=== PATIENT | female | born 1945 | race Two or more races ===

== ENCOUNTER → 2018-05-05 | Outpatient (CLI) | payer MEDICARE ==
[2018-05-05 17:36] LABS: HCT 40.9 % (34.0-46.0); HGB 13.2 gm/dL (11.4-16.0); MCH 27.3 pg (25.0-35.0); MCHC 32.4 g/dL (31.0-37.0); MCV 84.1 fL (80.0-100.0); Mean Platelet Volume 7.9; Platelet Count 325 k/uL (150-450); RBC 4.86 m/uL (3.80-5.40); RDW 13.5 % (11.5-15.5); WBC 5.9 k/uL (3.8-10.6)
[2018-05-05 17:48] LABS: Appearance,Urine Clear (Clear); Bilirubin,Urine Negative (Negative); Blood,Urine Negative (Negative); Color,Urine Light Yellow; Glucose,Urine (UA) Negative (Negative); Ketones,Urine Negative (Negative); Leukocyte Esterase,Urine Negative (Negative); Nitrite,Urine Negative (Negative); PH, Urine 5.5 (5.0-8.0); Protein,Urine Negative (Negative); Specific Gravity,Urine 1.006 (1.001-1.035); Urobilinogen,Urine <2.0 mg/dL (<2.0)
[2018-05-05 17:49] LABS: ALT 32 U/L (9-52); AST 28 U/L (14-36); Albumin 4.3 g/dL (3.5-5.0); Alkaline Phosphatase 79 U/L (38-126); Anion Gap 8 mmol/L; Blood Urea Nitrogen 11 mg/dL (7-17); Calcium 9.5 mg/dL (8.4-10.2); Carbon Dioxide 26 mmol/L (22-30); Chloride 107 mmol/L (98-107); Glucose 121 mg/dL (74-99); Partial Thromboplastin Time 24.5 sec (22.0-30.0); Potassium 4.4 mmol/L (3.5-5.1); Prothrombin Time 10.7 sec (9.0-12.0); Sodium 141 mmol/L (137-145); Total Bilirubin 0.4 mg/dL (0.2-1.3); Total Protein 7.3 g/dL (6.3-8.2)
== END | disposition home or self-care (01) ==
LOC: LABPAT 16:45
PROVIDERS: ATTEND Orthopaedic Surgery
DX: Z01.812 Encounter for preprocedural laboratory examination (principal)
CPT/HCPCS: 36415; 80053; 81003; 85027; 85610; 85730; 87070

== ENCOUNTER 2018-05-15 06:28 | Inpatient (IN) | payer MEDICARE ==
[~2018-05-15 06:28] MED LIST: HYDROmorphone 0.5 MG/0.5 ML SYRINGE IVP PRN; MELOXICAM 7.5 MG TAB PO ONE; MIDAZOLAM (PF) 2 MG/2 ML VIAL IV PRN; ONDANSETRON 4 MG/2 ML VIAL IVP ONE; TRANEXAMIC ACID 1,000 MG in SODIUM CHLORIDE 0.9% 100 ML IVPB ONE
[2018-05-15] MEDS: LACTATED RINGERS 1,000 ML IV SCH ×4 (06:52→21:16)
[2018-05-15 07:00] LABS: Glucose,Whole Blood 104 mg/dL (75-99)
[2018-05-15] MEDS: ACETAMINOPHEN TAB 500 MG TAB PO ONE ×2 (07:00→11:38)
[2018-05-15] MEDS ORDERED: fentaNYL (PF) 50 MCG/ML 2 ML AMP IVP ONE ×2 (07:07→07:08)
[2018-05-15] MEDS ORDERED: ROPIVACAINE 1,100 MG, SODIUM CHLORIDE 0.9% 500 ML 330 ML MISCELLANE PRN ×2 (07:36)
[2018-05-15] MEDS ORDERED: PROPOFOL 10 MG/ML 20 ML VIAL IV ONE (07:39)
[2018-05-15] MEDS: ceFAZolin IN SWFI 2 GM/20 ML SYRINGE IVP ONE ×2 (07:39→08:13)
[2018-05-15] MEDS ORDERED: SODIUM CHLORIDE 0.9% 100 ML BAG ONE (07:39)
[2018-05-15] MEDS ORDERED: MIDAZOLAM 2 MG/2 ML VIAL ONE (07:39)
[2018-05-15] MEDS ORDERED: ceFAZolin 3,000 MG in SODIUM CHLORIDE 0.9% IRRIGATIO 3,000 ML IRRIGATION ONE (07:39)
[2018-05-15] MEDS ORDERED: ePHEDrine SULFATE/0.9% NACL/PF 50 MG/5 ML SYRINGE IV ONE (07:39)
[2018-05-15] MEDS ORDERED: TRANEXAMIC ACID 1,000 MG/10 ML VIAL ONE (07:39)
[2018-05-15] MEDS ORDERED: ROPIVACAINE 246.25 MG, EPINEPHrine 0.5 MG, KETOROLAC 30 MG, cloNIDine HCL/PF 80 MCG, WA... MISCELLANE ONE ×5 (07:55)
[2018-05-15] MEDS ORDERED: LACTATED RINGERS 1,000 ML IV ONE (08:59)
--- NOTE | 2018-05-15 09:15 | P.ONQ ---
Anesthesiology Proc Note - PNB - Peripheral Nerve Block Performed Left Adductor Canal Infusion Time Out Performed: Yes (704) Procedure Start Time: 07:05 Procedure Stop Time: 07:15 Indication: Acute Post-Operative Pain, Dx/Pain Location (Left Knee Pain), Requested by physician Sedation Type: Sedate with meaningful contact maintained Preparation: Sterile Prep Catheter: Indwelling Needle Types: Touhy Needle Size: 100mm (4") Technique: Ultrasound Injectate: 0.5% Ropivacaine (see comment for volume) Blood Aspirated: No Pain Paresthesia on Injection Noted: No Resistance on Injection: Normal Events: Uneventful and Well Tolerated
--- NOTE | 2018-05-15 09:25 | P.OP ---
Date of Procedure: 05/15/18 Procedure(s) Performed: PREOPERATIVE DIAGNOSIS: Left knee severe osteoarthritis with genu varum POSTOPERATIVE DIAGNOSIS: Left knee severe osteoarthritis with genu varum OPERATION: Left knee cemented total replacement arthroplasty. ANESTHESIA: Spinal ESTIMATED BLOOD LOSS: 100 ml. DESKTOP SUPPORT ENGINEER: Jolly Leal PA-C (assistance with: patient positioning, retraction, exposure, hemostasis, leg positioning, implantation, irrigation, closure, dressing) COMPLICATIONS: None apparent. COMPONENTS IMPLANTED: Persona system from [employer] INDICATIONS: Mrs. Andrew is a 73 year old female with a history of left knee osteoarthritis. Conservative treatment has been tried and has been unsuccessful in controlling symptoms adequately. MRI shows severe osteoarthritic changes in the medial and patellofemoral compartments and she has corresponding symptoms. The operation of knee replacement has been discussed at length in the office, as well as potential risks and complications. These are inclusive of, but not limited to: bleeding, infection, scarring, discomfort, blood vessel and nerve damage, need for further surgery, failure to relieve symptoms, persistence, recurrence, or worsening of problems, loosening, dislocation, wear, blood clot, pulmonary embolism, , gait dysfunction, stiffness, and other risks as discussed in the office. The patient elects to proceed and the consent form has been signed. PROCEDURE: The patient was taken to the operating room and positioned on the operating room table in the supine position. Anesthesia was initiated. Care was taken to make sure that all pressure points were adequately padded. The operative lower extremity was prepped and draped in the usual aseptic fashion using ChloraPrep. Ioban drape was used for the case and the patient received intravenous antibiotics within one hour of the incision. A pneumotourniquet and leg pal were used for the case. The limb was exsanguinated with an Esmarch bandage and the tourniquet was inflated to 350 mmHg. Time-out was called confirming the patient's identity, side, procedure and administration of antibiotics and tranexamic acid, 1 g IV. The incision was then created midline directly over the knee, carried down through skin and into the subcutaneous tissues and down to fascia. Full thic kness subcutaneous medial flap was developed. Medial parapatellar arthrotomy was performed and the interior of the knee was inspected. There was end-stage osteoarthritis of the knee with a mild to moderate genu varum type deformity. The fat pad was excised and proximal medial release on the tibia was completed using meticulous dissection and a curved osteotome. The anterior cruciate ligament was taken down. Note was made of significant attrition of the anterior and significant degenerative appearance of the posterior cruciate ligaments. The exposure was excellent. The knee was flexed 90 degrees and the patella was everted. A spot was chosen on the femur approximately 1 cm anterior to the posterior cruciate ligament insertion and an intramedullary hole was created within the femur. The intramedullary guide was then set to 5 degrees of valgus. The distal cutting block was attached and pinned into position. An appropriate amount of distal femoral resection was set. The oscillating saw was then used to make the distal femoral cut. This cut was confirmed to be flat with the flat end of an osteotome. The retractors were placed around the tibia and the tibial surface was addressed. The angle and depth of resection was adjusted using an extramedullary cutting guide. The guide had a built-in 3 degree posterior slope cut. Once the cutting guide was adjusted appropriately and in line with the axis of the tibia and confirmed to be in good position in relation to the second metatarsal and transmalleolar axis, the tibial cut was then created with protection of the posterior neurovascular structures and the collateral ligaments. The tibial cut surface was removed and sized. Femoral sizing was then accomplished using anterior referencing. Care was taken to analyze the posterior condyles for signs of deficiency or severe wear, and adjustments to the guide were made, as appropriate. 3 degree external rotation pins were placed. The cutting jig for the femur was applied to these pins. The planned cuts were further analyzed prior to performing them with the oscillating saw. No femoral notching was produced. Bone fragments were removed and the cut surfaces were finished, as necessary, with a reciprocating saw. Spacer block technique was then used to confirm that the flexion and extension gaps were equal. Soft tissue releases and adjustment of the tibial and/or fem oral cuts were made, as necessary, until the gaps were equal. This included release of the posterior cruciate ligament, which was tight in this patient. The femur was then further finished for a posterior cruciate ligament substituting component. Patellar resurfacing was performed using a reamer. The size of the required patellar component was estimated and the patellar surface was then reamed down to a residual thickness which would recreate the [place] thickness with the component. The exact placement of the patellar component was adjusted for position based on preoperative x-rays and intraoperative findings. Prior to placing trial components, anesthetic solution consisting of ropivicaine with epinephrine, ketorolac, and clonidine was injected carefully and methodically in a grid pattern using aspiration technique into the soft tissue around the knee circumferentially, starting with the deeper tissues first and progressing to fascia, and then finally the skin/subcutaneous tissue. Particular care was taken when injecting the posterior capsule. The trial components were inserted. The tibial tray was allowed to self center and the patella was noted to track very well. The position of the tibial component was marked and the tibia was then finished for a stemmed tibial component. Cement was mixed on the back table and applied to the final components. Trial components were removed and the cut surfaces of the bone were pulse lavaged thoroughly and dried. Cement was then applied to the tibial surface and pressurized into the surface using finger pressurization technique. The tibial component was then applied and excess cement was removed after it was impacted securely and noted to be flush with the cut surface. In similar fashion, the cement was applied to the cut femoral surface, pressurized in using finger pressurization and the component was impacted into place. Excess cement was removed. The polyethylene spacer was then implanted and locked into position. The patellar component was then applied in similar technique and a patellar clamp was used to hold the patella in place as the cement hardened. Once the cement had fully hardened, the knee was reinspected. Any other cement extrusion was removed and final kinematic testing showed range of motion from 0 to 130 degrees with excellent stability, both medially and laterally and appropriate alignment of the leg. Patellar tracking was excellent. The knee was then thoroughly pulse lavaged with normal saline. The tourniquet was deflated and hemostasis was obtained with electrocautery and IV tranexamic acid, 1 g given prior to inflation of the tourniquet and another gram given at the time of closure. Closure was with #2 Ethibond in the fascia and supplemented with #2 Quill, 2-0 Vicryl suture was used for the subcutaneous tissues and 3-0 Quill for the skin. Dermabond/Steri-Strips were then applied. A lightly compressive dressing was applied using Webril and an Nitin wrap. The patient was then transferred to stretcher and taken to the recovery room in stable condition. Sponge and needle counts were correct.
[2018-05-15] MEDS ORDERED: MAGNESIUM HYDROXIDE 2,400 MG/10 ML CUP PO PRN (10:11)
[2018-05-15] MEDS ORDERED: NA PHOS,M-B/NA PHOS,DI-BA 133 ML ENEMA RECTAL PRN (10:11)
[2018-05-15] MEDS ORDERED: HYDROcodone/APAP 5-325MG 1 EACH TAB PO PRN ×2 (10:11)
[2018-05-15] MEDS ORDERED: BISACODYL 10 MG SUPP RECTAL PRN (10:11)
[2018-05-15] MEDS ORDERED: ONDANSETRON 4 MG/2 ML VIAL IVP PRN (10:11)
[2018-05-15] MEDS ORDERED: HYDROmorphone 0.5 MG/0.5 ML SYRINGE IVP PRN ×3 (10:11)
[2018-05-15] MEDS ORDERED: NALOXONE 0.4 MG/ML 1 ML VIAL IV PRN (10:11)
[2018-05-15 10:17] LABS: Glucose,Whole Blood 103 mg/dL (75-99)
--- NOTE | 2018-05-15 10:43 | XR ---
Limited left knee HISTORY: Status post left knee arthroplasty 2 views of the left knee Patient is status post left knee arthroplasty. There is anatomic alignment. Lucency present in the so ft tissues. IMPRESSION: Orthopedic follow-up.
[2018-05-15 12:21] VITALS: BMI 30.8
[2018-05-15 12:33] LABS: Glucose,Whole Blood 91 mg/dL (75-99)
[2018-05-15] MEDS: ceFAZolin IN SWFI 2 GM/20 ML SYRINGE IVP SCH (15:53)
[2018-05-15 17:31] LABS: Glucose,Whole Blood 80 mg/dL (75-99)
--- NOTE | 2018-05-15 18:13 | P.CONS ---
History of Present Illness - Reason for Consult Consult date: 05/15/18 Medical management Requesting physician: Madi Kim - Chief Complaint Left knee pain - History of Present Illness 73-year-old female with PMH of hypothyroidism and prediabetes mellitus presents for elective left knee replacement. She was diagnosed with left knee severe osteoarthritis with genu varum. Patient reports slight limitations to her activity level prior to surgery, but she was able to do her ADLs and IADLs without assistance. There is no complications with the surgery. Patient was seen and examined after the surgery. She reports no pain in her left knee. Patient states that she is otherwise doing fine. She denies any headache, lower extremity edema, nausea, vomiting, fever, chills, cough, chest pain, shortness of breath, changes in urination or bowel habits. No changes in appetite or weight. Patient reports walking up and down the hallways with no difficulties. She has also urinated 2-3 times since her surgery. She has not had a bowel movement nor has she passed gas since her surgery. Review of Systems All systems: negative Past Medical History Past Medical History: Diabetes Mellitus, Thyroid Disorder History of Any Multi-Drug Resistant Organisms: None Reported Past Surgical History: Orthopedic Surgery Additional Past Surgical History / Comment(s): zhang hand tendon sx, zhang cataract Past Anesthesia/Blood Transfusion Reactions: Postoperative Nausea & Vomiting (PONV) Past Psychological History: No Psychological Hx Reported Smoking Status: Never smoker Past Alcohol Use History: Occasional Past Drug Use History: None Reported - Past Family History Father Family Medical History: Cancer Medications and Allergies Home Medications Medication Instructions Recorded Confirmed Type Levothyroxine Sodium [Synthroid] 50 mcg PO DAILY 05/05/18 05/15/18 History metFORMIN HCL [Glucophage] 1,000 mg PO HS 05/05/18 05/15/18 History Aspirin 325 mg PO DAILY #30 tab 05/15/18 Rx HYDROcodone/APAP 5-325MG [[place] 1 - 2 each PO Q4-6H PRN #50 tab 05/15/18 Rx 5-325] Rivaroxaban [Xarelto] 10 mg PO DAILY #5 tab 05/15/18 Rx Sennosides-Docusate Sodium 1 tab PO BID #60 tablet 05/15/18 Rx [Senokot-S] Allergies Allergy/AdvReac Type Severity Reaction Status Date / Time No Known Allergies Allergy Verified 05/15/18 11:42 Physical Exam Vitals: Vital Signs Temp Pulse Pulse Resp BP BP Pulse Ox 05/15/18 15:00 76 14 154/66 100 05/15/18 13:47 76 154/66 05/15/18 13:31 72 156/67 05/15/18 13:16 72 158/67 05/15/18 13:01 68 160/78 05/15/18 12:47 68 145/67 05/15/18 12:31 58 L 161/76 05/15/18 12:16 61 152/77 05/15/18 12:01 74 137/67 05/15/18 11:46 97.5 F L 69 14 143/72 95 05/15/18 11:30 73 16 122/60 94 L 05/15/18 11:15 55 L 16 125/58 95 05/15/18 11:00 58 L 16 128/58 93 L 05/15/18 10:45 56 L 16 124/57 92 L 05/15/18 10:30 59 L 16 127/60 93 L 05/15/18 10:15 58 L 16 142/63 92 L 05/15/18 10:00 68 16 135/60 94 L 05/15/18 09:56 96.8 F L 69 16 139/65 93 L 05/15/18 07:25 59 L 16 116/59 98 05/15/18 06:56 97.4 F L 65 16 186/72 98 Intake and Output 05/15/18 05/15/18 05/15/18 06:59 14:59 22:59 Intake Total 1501 Output Total 100 Balance 1401 Intake: IV 1301 Other 200 Output: Estimated Blood Loss 100 General: [non toxic], [no distress], [appears at stated age] Derm: [warm], [dry] Head: [atraumatic], [normocephalic], [symmetric] Eyes: [EOMI], [no lid lag], [anicteric sclera] Mouth: [no lip lesion], [mucus membranes moist] Cardiovascular: [S1S2 reg], [no murmur] Lungs: [CTA bilateral], [no rhonchi, no rales] , [no accessory muscle use] Ext: [no gross muscle atrophy], [no edema], [no contractures], [left knee wrapped, sensation intact to touch in the foot, 2+ dorsalis pedis pulses] Neuro: [no focal neuro deficits] Psych: [Alert], [oriented], [appropriate affect] Results Labs: Abnormal Lab Results - Last 24 Hours (Table) 05/15/18 05/15/18 Range/Units 06:52 10:14 POC Glucose (mg/dL) 104 H 103 H (75-99) mg/dL Assessment and Plan Assessment: Assessment and Plan 1. Postoperative pain 2. Hypothyroidism 3. Prediabetes mellitus 4. Status post left knee arthroplasty 1. Patient is in no pain at all. Advised to use [place] for pain 1-7, Dilaudid for pain 7-10. Advised patient to treat her pain before it reaches a 10 out of 10. Start aggressive bowel regimen with Dulcolax, Senokot and milk of magnesia as needed for constipation. 2. Continue Synthroid. 3. On metformin at home. Will not require insulin while here. Regular Accu- Cheks. Low-carb diet. 4. Postop day 0. Management as per orthopedic surgery. Follow PT recommendations. Thank you for this consult. Please call with any additional questions.
[2018-05-15 20:18] LABS: Glucose,Whole Blood 141 mg/dL (75-99)
[2018-05-15] MEDS ORDERED: SENNOSIDES-DOCUSATE SODIUM 1 EACH TAB PO SCH (21:00)
[2018-05-16] MEDS: ceFAZolin IN SWFI 2 GM/20 ML SYRINGE IVP SCH (00:16)
[2018-05-16] MEDS ORDERED: LEVOTHYROXINE 50 MCG TAB PO SCH (06:30)
[2018-05-16 07:24] LABS: Glucose,Whole Blood 117 mg/dL (75-99)
[2018-05-16 07:42] VITALS: BP 126/66; PULSE 87; RESP 15; TEMP 98.9
[2018-05-16] MEDS: LACTATED RINGERS 1,000 ML IV SCH (08:34)
[2018-05-16] MEDS ORDERED: RIVAROXABAN 10 MG TAB PO SCH (09:00)
--- NOTE | 2018-05-16 10:19 | P.PN ---
Subjective Progress Note Date: 05/16/18 Principal diagnosis: Left knee pain Patient is a 73-year-old female past medical history of hypothyroidism, diabetes, and osteoarthritis who presented for a left total knee arthroplasty with Dr. Kim. She underwent the procedure without any postoperative complications. She is already been up and ambulating in the hallways. Patient seen and examined at bedside. She denies any chest pain, shortness of breath, nausea, or vomiting. She has been up and ambulating well. Pain is controlled. She's not had a bowel movement. Objective - Vital Signs Vital signs: Vital Signs Temp 98.9 F 05/16/18 06:58 Pulse 87 05/16/18 06:58 Resp 15 05/16/18 06:58 BP 126/66 05/16/18 06:58 Pulse Ox 92 L 05/16/18 06:58 Intake & Output 05/15/18 05/16/18 05/16/18 18:59 06:59 18:59 Intake Total 1501 Output Total 100 Balance 1401 Intake: IV 1301 Other 200 Output: Estimated Blood Loss 100 Other: Voiding Method Toilet # Voids 1 - Exam General: non toxic, no distress, appears at stated age Derm: warm, dry Head: atraumatic, normocephalic, symmetric Eyes: EOMI, no lid lag, anicteric sclera Mouth: no lip lesion, mucus membranes moist Cardiovascular: S1S2 reg, no murmur, positive posterior tibial pulse bilateral, Lungs: CTA bilateral, no rhonchi, no rales , no accessory muscle use Abdominal: soft, nontender to palpation, no guarding, no appreciable organomegaly Ext: no gross muscle atrophy, no edema, no contractures Neuro: CN II-XI grossly intact, no focal neuro deficits Psych: Alert, oriented, appropriate affect - Labs CBC & Chem 7: 05/16/18 08:38 Labs: Abnormal Lab Results - Last 24 Hours (Table) 05/15/18 05/16/18 Range/Units 20:07 07:12 POC Glucose (mg/dL) 141 H 117 H (75-99) mg/dL Assessment and Plan Assessment: Diabetes mellitus type 2 -Last A1c 5.9 per patient -Resume metformin at home -Continue follow-up with her outpatient PCP Hypothyroidism -Resume thin Synthroid Left total knee arthroplasty -Continue with pain control -Cleared for discharge by physical occupational therapy -Orthopedic recommendations. Obesity with BMI 30.1 -Structured outpatient weight loss Patient medically optimized for discharge when deemed appropriate by orthopedic surgery Thank you for allowing us to participate in the care of this patient. Do not hesitate to contact us with questions. Someone can be reached from the [facility] hospitalist group at all hours of the day at [phone].
--- NOTE | 2018-05-16 10:23 | P.PN ---
Progress Note - Text Progress Note Date: 05/16/18 73 yo female s/p Left Total knee arthroplasty with Adductor Canal Catheter. Patient doing well VAS 1/10 in severity at rest, 2-3/10 in severity with movement. Patient doing well with no issues, ambulating well and tolerating diet.
[2018-05-16 10:27] LABS: Basophils % (A) 1 %; Eosinophils # (A) 0.2 k/uL (0-0.7); Eosinophils % (A) 2 %; HCT 35.2 % (34.0-46.0); HGB 11.5 gm/dL (11.4-16.0); Lymphocytes # (A) 1.4 k/uL (1.0-4.8); Lymphocytes % (A) 18 %; MCH 27.8 pg (25.0-35.0); MCHC 32.7 g/dL (31.0-37.0); MCV 85.2 fL (80.0-100.0); Mean Platelet Volume 8.6; Monocytes # (A) 0.5 k/uL (0-1.0); Monocytes % (A) 6 %; Neutrophils # (A) 5.9 k/uL (1.3-7.7); Neutrophils % (A) 72 %; Platelet Count 223 k/uL (150-450); RBC 4.12 m/uL (3.80-5.40); RDW 13.4 % (11.5-15.5); WBC 8.1 k/uL (3.8-10.6)
--- NOTE | 2018-05-16 11:31 | P.DS ---
Providers Date of admission: 05/15/18 06:28 Expected date of discharge: 05/16/18 Attending physician: Madi Kim Consults: 05/15/18 10:11 Consult Physician Routine Consulting Provider: Kaelyn Quintana Consult Reason/Comments: Medical management Do you want consulting provider notified?: Yes Primary care physician: Bar Mora - Discharge Diagnosis(es) (1) Osteoarthritis of left knee Current Visit: Yes Status: Acute (2) S/P total knee arthroplasty Current Visit: Yes Status: Acute Hospital Course: This is a 73-year-old female who was last seen with complaint of continued left knee pain. The patient has a known history of degenerative arthritis of the left knee and presents to discuss surgical options. After discussion and consideration the patient elects to proceed with total left knee arthroplasty. The patient is seen preoperatively by her primary care physician and cleared for surgery. The patient is admitted to [facility] for total left knee arthroplasty. The procedures performed without complication or sequelae. He is doing well postoperatively. Vital signs are stable at discharge. Labs are stable at discharge. the patient is ambulating well with walker with minimal assistance. The patient is discharged to home on postop day #1 pending medical clearance. Please see orders and refer to the [facility] rec for accurate list of medications. Patient Condition at Discharge: Good Plan - Discharge Summary Discharge Rx Participant: No New Discharge Prescriptions: New Aspirin 325 mg PO DAILY #30 tab HYDROcodone/APAP 5-325MG [[place] 5-325] 1 - 2 each PO Q4-6H PRN #50 tab PRN Reason: Pain Sennosides-Docusate Sodium [Senokot-S] 1 tab PO BID #60 tablet Rivaroxaban [Xarelto] 10 mg PO DAILY #5 tab Continue metFORMIN HCL [Glucophage] 1,000 mg PO HS Levothyroxine Sodium [Synthroid] 50 mcg PO DAILY Discharge Medication List Levothyroxine Sodium [Synthroid] 50 mcg PO DAILY 05/05/18 [History] metFORMIN HCL [Glucophage] 1,000 mg PO HS 05/05/18 [History] Aspirin 325 mg PO DAILY #30 tab 05/15/18 [Rx] HYDROcodone/APAP 5-325MG [[place] 5-325] 1 - 2 each PO Q4-6H PRN #50 tab 05/15/18 [Rx] Rivaroxaban [Xarelto] 10 mg PO DAILY #5 tab 05/15/18 [Rx] Sennosides-Docusate Sodium [Senokot-S] 1 tab PO BID #60 tablet 05/15/18 [Rx] Follow up Appointment(s)/Referral(s): Jolly Leal PAC [PHYSICIAN WHARF TALLY CLERK] - 05/31/18 2:15 pm Bar Mora DO [Primary Care Provider] - 1 Week (Follow as needed if you have any concerns about medications) [facility], [NON-STAFF] - As Needed Patient Instructions/Handouts: Knee Replacement (DC) Activity/Diet/Wound Care/Special Instructions: May bear wt as tolerated w walker. May shower if no drainage from incision. Discharge Disposition: HOME WITH HOME HEALTH SERVICES
== END 2018-05-16 13:27 | disposition home health service (06) | DRG 470 ==
LOC: 2ORMAIN 06:28 → 4SSUR 09:48
PROVIDERS: ADMIT Orthopaedic Surgery; ATTEND Orthopaedic Surgery
PROC: 0SRD0J9 Replacement of Left Knee Joint with Synthetic Substitute, Cemented, Open Approach (ICD-10-PCS; principal; 2018-05-15 07:30)
DX: M17.12 Unilateral primary osteoarthritis, left knee (principal); E11.9 Type 2 diabetes mellitus without complications; M21.162 Varus deformity, not elsewhere classified, left knee; E66.9 Obesity, unspecified; E03.9 Hypothyroidism, unspecified; Z68.30 Body mass index [BMI] 30.0-30.9, adult; Z79.84 Long term (current) use of oral hypoglycemic drugs; Z79.82 Long term (current) use of aspirin; Z79.01 Long term (current) use of anticoagulants; Z98.42 Cataract extraction status, left eye; Z98.41 Cataract extraction status, right eye; Z79.890 Hormone replacement therapy; Z80.9 Family history of malignant neoplasm, unspecified
CPT/HCPCS: 85025; 88300